=== PATIENT | male | born 1965 | race Caucasian/White ===

== ENCOUNTER → 2016-05-22 | Outpatient (CLI) | payer MEDICARE, OTHER | LOC: HEART 5 08:51 | DX: I50.22 Chronic systolic (congestive) heart failure (principal); I25.10 Atherosclerotic heart disease of native coronary artery without angina pectoris; I42.0 Dilated cardiomyopathy; I47.1 Supraventricular tachycardia; I47.2 Ventricular tachycardia | CPT/HCPCS: 93306 ==

== ENCOUNTER → 2016-05-22 | Outpatient (CLI) | payer MEDICARE ==
[2016-05-22 10:29] LABS: BUN/CREATININE RATIO 20 (0-10)
== END ==
PROVIDERS: Internal Medicine Cardiovascular Disease
DX: E78.4 Other hyperlipidemia (principal); I20.9 Angina pectoris, unspecified; I25.10 Atherosclerotic heart disease of native coronary artery without angina pectoris; I42.0 Dilated cardiomyopathy; I47.1 Supraventricular tachycardia; I47.2 Ventricular tachycardia; I50.22 Chronic systolic (congestive) heart failure; Z88.5 Allergy status to narcotic agent
CPT/HCPCS: 36415; 80048; 83880

== ENCOUNTER 2016-08-12 10:42 | Emergency (ER) | payer MEDICARE, OTHER ==
[2016-08-12 11:56] LABS: HEMOGLOBIN 13.1 gm/dl (14.0-17.5); RED BLOOD COUNT 4.43 M/UL (4.20-5.50); WHITE BLOOD COUNT 8.8 K/UL (4.5-11.0)
[2016-08-12 12:11] LABS: BUN/CREATININE RATIO 28 (0-10)
== END 2016-08-12 16:43 | disposition home or self-care (01) ==
LOC: ER1 10:42
PROVIDERS: Specialist/Technologist Athletic Trainer
DX: R07.89 Other chest pain (principal); I11.9 Hypertensive heart disease without heart failure; E78.5 Hyperlipidemia, unspecified; R79.89 Other specified abnormal findings of blood chemistry; Z79.899 Other long term (current) drug therapy; Z88.5 Allergy status to narcotic agent; Z95.810 Presence of automatic (implantable) cardiac defibrillator
CPT/HCPCS: 36415; 71020; 80053; 82550; 82553; 83874; 84484; 85025; 93005; 96374; 96375; 99285; J1885; J2270; J2405

== ENCOUNTER → 2020-04-02 | Outpatient (CLI) | payer MEDICARE, OTHER ==
[~2020-04-02] MED LIST: ACTIGALL300 MG PO; ALDACTONE50 MG PO; AMIODARONE HCL400 MG PO; BACTRIM DS TAB1 EACH PO; BENTYL 20MG TAB20 MG PO; BUMETANIDE1 MG PO; BUMEX 1MG TABLET1 MG PO; CALCIUM 500 +1 EAC1 PO; CELLCEPT500 MG PO; CERTAVITE-ANTI1 EACH PO; COREG 25MG TAB25 MG PO; ECOTRIN81 MG PO; ENTRESTO 24 MG1 EACH PO; ENTRESTO PO; FLOMAX0.4 MG PO; FOLIC ACID1 MG PO; HUMALOG100 UNIT/3 SQ; IMDUR ER TAB 3030 MG PO; KLOR-CON 1010 MEQ PO; LANTUS SOL100 UNIT/1 SQ; LASIX20 MG PO; LIPITOR10 MG PO; MAG6464 MG PO; NITROSTAT0.4 MG SL; NORCO 5-325 TA1 EACH PO; NORCO 7.5-3251 EACH PO; PHENERGAN 25 MG25 M1 PO; PRAVACHOL40 MG PO; PREDNISONE2.5 MG PO; PRINIVIL20 MG PO; PROGRAF1 MG PO; PROTONIX40 MG PO; REQUIP0.25 MG PO; SENOKOT8.6 MG PO; TESSALON PERLE100 MG PO; TOPROL XL 25 MG25 MG PO; VALGANCICLOVIR450 MG PO; VENTOLIN HFA 66.7 GM INH; VISTARIL25 MG PO; WARFARIN SODIU2.5 MG PO; ZITHROMAX TRI-500 MG PO
[2020-04-02 12:59] LABS: HEMOGLOBIN 14.4 gm/dl (14.0-17.5); RED BLOOD COUNT 5.05 M/UL (4.20-5.50); WHITE BLOOD COUNT 5.6 K/UL (4.5-11.0)
[2020-04-02 13:34] LABS: BUN/CREATININE RATIO 28 (0-10)
== END ==
LOC: LAB 12:13
PROVIDERS: Internal Medicine
DX: Z48.21 Encounter for aftercare following heart transplant (principal); A49.02 Methicillin resistant Staphylococcus aureus infection, unspecified site; Z22.39 Carrier of other specified bacterial diseases
CPT/HCPCS: 36415; 80053; 85027

== ENCOUNTER 2020-05-06 03:47 | Emergency (ER) | payer MEDICARE, OTHER ==
[~2020-05-06] VITALS: Ht 167.6 cm; Wt 90.7 kg
[~2020-05-06 03:47] MED LIST changes: -BACTRIM DS TAB1 EACH PO; -BUMETANIDE1 MG PO; -CALCIUM 500 +1 EAC1 PO; -CELLCEPT500 MG PO; -CERTAVITE-ANTI1 EACH PO; -HUMALOG100 UNIT/3 SQ; -LANTUS SOL100 UNIT/1 SQ; -MAG6464 MG PO; -PRAVACHOL40 MG PO; -PREDNISONE2.5 MG PO; -PROGRAF1 MG PO; -REQUIP0.25 MG PO; -SENOKOT8.6 MG PO; -VALGANCICLOVIR450 MG PO
[2020-05-06 04:39] LABS: HEMOGLOBIN 12.5 gm/dl (14.0-17.5); RED BLOOD COUNT 4.34 M/UL (4.20-5.50); WHITE BLOOD COUNT 10.2 K/UL (4.5-11.0)
[2020-05-06 04:53] LABS: BUN/CREATININE RATIO 30 (0-10)
[2020-05-06] MEDS ORDERED: CELLCEPT500 MG PO (16:30)
[2020-05-06] MEDS ORDERED: PROGRAF1 MG PO (16:33)
[2020-05-06] MEDS ORDERED: CALCIUM 500 +1 EAC1 PO (16:34)
[2020-05-06] MEDS ORDERED: CERTAVITE-ANTI1 EACH PO (16:35)
[2020-05-06] MEDS ORDERED: VALGANCICLOVIR450 MG PO (16:37)
[2020-05-06] MEDS ORDERED: SENOKOT8.6 MG PO (16:38)
[2020-05-06] MEDS ORDERED: BACTRIM DS TAB1 EACH PO (16:40)
[2020-05-06] MEDS ORDERED: PROTONIX40 MG PO (16:43)
[2020-05-06] MEDS ORDERED: PRAVACHOL40 MG PO (16:43)
[2020-05-06] MEDS ORDERED: REQUIP0.25 MG PO (16:44)
[2020-05-06] MEDS ORDERED: BUMETANIDE1 MG PO (16:45)
[2020-05-06] MEDS ORDERED: PREDNISONE2.5 MG PO (16:45)
[2020-05-06] MEDS ORDERED: HUMALOG100 UNIT/3 SQ ×3 (16:47→16:48)
[2020-05-06] MEDS ORDERED: LANTUS SOL100 UNIT/1 SQ (16:53)
[2020-05-06] MEDS ORDERED: MAG6464 MG PO (16:54)
[2020-05-07 06:20] LABS: BUN/CREATININE RATIO 21 (0-10)
[2020-05-09 16:14] LABS: ORGANISM ID Not indicated. (.); SPECIMEN SOURCE Urine (.); STREPTOCOCCUS PNEUMONIAE AG Negative (Negative)
== END 2020-05-07 12:07 | disposition admitted as inpatient to this hospital (09) ==
LOC: ER1 03:47
PROVIDERS: Emergency Medicine
DX: J18.9 Pneumonia, unspecified organism (principal); E11.9 Type 2 diabetes mellitus without complications; I10 Essential (primary) hypertension; Z20.822 Contact with and (suspected) exposure to COVID-19; Z94.1 Heart transplant status; Z90.49 Acquired absence of other specified parts of digestive tract; Z93.3 Colostomy status
CPT/HCPCS: 71045; 80048; 80053; 81001; 82962; 83605; 83615; 83690; 84484; 85025; 85610; 85730; 87040; 87278; 87635; 87899; 93005; 96365; 96366; 96368; 96376; 99285; J2185; J2405; J3370; J7030; J7070; Q9967

== ENCOUNTER → 2020-05-13 | Outpatient (CLI) | payer MEDICARE, OTHER ==
[~2020-05-13] MED LIST changes: +BACTRIM DS TAB1 EACH PO; +BUMETANIDE1 MG PO; +CALCIUM 500 +1 EAC1 PO; +CELLCEPT500 MG PO; +CERTAVITE-ANTI1 EACH PO; +HUMALOG100 UNIT/3 SQ; +LANTUS SOL100 UNIT/1 SQ; +MAG6464 MG PO; +PRAVACHOL40 MG PO; +PREDNISONE2.5 MG PO; +PROGRAF1 MG PO; +REQUIP0.25 MG PO; +SENOKOT8.6 MG PO; +VALGANCICLOVIR450 MG PO
== END ==
LOC: LAB 11:46
DX: Z48.21 Encounter for aftercare following heart transplant (principal); I42.0 Dilated cardiomyopathy; Z16.12 Extended spectrum beta lactamase (ESBL) resistance; Z22.39 Carrier of other specified bacterial diseases; Z16.24 Resistance to multiple antibiotics
CPT/HCPCS: 36415

== ENCOUNTER → 2020-07-23 | Outpatient (CLI) | payer MEDICARE, OTHER ==
[2020-07-23 09:23] LABS: HEMOGLOBIN 12.7 gm/dl (14.0-17.5); RED BLOOD COUNT 4.57 M/UL (4.20-5.50); WHITE BLOOD COUNT 3.7 K/UL (4.5-11.0)
[2020-07-23 10:02] LABS: BUN/CREATININE RATIO 23 (0-10)
== END ==
LOC: LAB 08:47
PROVIDERS: Internal Medicine
DX: A49.02 Methicillin resistant Staphylococcus aureus infection, unspecified site (principal); Z22.39 Carrier of other specified bacterial diseases
CPT/HCPCS: 36415; 80053; 85027

== ENCOUNTER 2020-07-26 11:47 | Emergency (ER) | payer MEDICARE, OTHER ==
[2020-07-26 12:40] LABS: HEMOGLOBIN 12.2 gm/dl (14.0-17.5); RED BLOOD COUNT 4.35 M/UL (4.20-5.50); WHITE BLOOD COUNT 3.4 K/UL (4.5-11.0)
[2020-07-26 13:04] LABS: BUN/CREATININE RATIO 20 (0-10)
[2020-07-26 13:07] LABS: BORDETELLA PARAPERTUSSIS Not Detected (Not Detectd); BORDETELLA PERTUSSIS Not Detected (Not Detectd); CHLAMYDIA PNEUMONIAE Not Detected (Not Detectd); CORONAVIRUS HKU1 Not Detected (Not Detectd); CORONAVIRUS NL63 Not Detected (Not Detectd); CORONAVIRUS OC43 Not Detected (Not Detectd); CORONOAVIRUS 229E Not Detected (Not Detectd); HUMAN METAPNEUMOVIRUS Not Detected (Not Detectd); HUMAN RHINOVIRUS/ENTEROVIRUS Not Detected (Not Detectd); INFLUENZA A Not Detected (Not Detectd); INFLUENZA B Not Detected (Not Detectd); MYCOPLASMA PNEUMONIAE Not Detected (Not Detectd); PARAINFLUENZA VIRUS 1 Not Detected (Not Detectd); PARAINFLUENZA VIRUS 2 Not Detected (Not Detectd); PARAINFLUENZA VIRUS 3 Not Detected (Not Detectd); PARAINFLUENZA VIRUS 4 Not Detected (Not Detectd); RESPIRATORY SYNCYTIAL VIRUS Not Detected (Not Detectd)
[2020-07-26 14:18] LABS: SARS-CoV-2 NOT DETECTED (Not Detectd)
== END 2020-07-26 16:20 | disposition home or self-care (01) ==
LOC: ER1 11:47
PROVIDERS: Emergency Medicine
DX: R50.9 Fever, unspecified (principal); Z94.1 Heart transplant status
CPT/HCPCS: 71045; 80053; 81001; 83605; 83735; 83880; 84100; 84484; 85025; 87040; 87086; 87633; 93005; 99283; J7030

== ENCOUNTER → 2020-09-11 | Outpatient (CLI) | payer MEDICARE, OTHER ==
[2020-09-11 12:24] LABS: RED BLOOD COUNT 4.26 M/UL (4.20-5.50); WHITE BLOOD COUNT 6.6 K/UL (4.5-11.0)
[2020-09-11 12:54] LABS: BUN/CREATININE RATIO 28 (0-10)
[2020-09-12 14:14] LABS: TACROLIMUS BY IMMUNOASSAY 7.6 ng/mL (2.0-20.0)
[2020-09-13 22:08] LABS: CMV QUANT DNA PCR (PLASMA) Positive < 200 IU/mL (Negative)
== END ==
LOC: LAB 10:13
PROVIDERS: Internal Medicine
DX: Z48.21 Encounter for aftercare following heart transplant (principal); B25.9 Cytomegaloviral disease, unspecified; Z79.899 Other long term (current) drug therapy
CPT/HCPCS: 36415; 80053; 80195; 80197; 85025; 87497

== ENCOUNTER → 2020-09-25 | Outpatient (CLI) | payer MEDICARE, OTHER ==
[~2020-09-25] MED LIST changes: +DIOVAN160 MG PO; +FLONASE ALLER15.8 ML; +KENALOG CREAM 080 GM TOP; -PRINIVIL20 MG PO; +RAPAMUNE2 MG PO; +TRULICITY0.75 MG/0. SQ; +VITAMIN C 500500 MG PO; +VITAMIN E400 UNI1 PO; +ZYRTEC10 MG PO
[2020-09-25 12:56] LABS: HEMOGLOBIN 12.7 gm/dl (14.0-17.5); RED BLOOD COUNT 4.45 M/UL (4.20-5.50); WHITE BLOOD COUNT 7.6 K/UL (4.5-11.0)
[2020-09-25 13:21] LABS: BUN/CREATININE RATIO 23 (0-10)
[2020-09-27 21:07] LABS: CMV QUANT DNA PCR (PLASMA) Negative (Negative)
== END ==
LOC: LAB 12:07
PROVIDERS: Internal Medicine
DX: Z48.812 Encounter for surgical aftercare following surgery on the circulatory system (principal); Z94.1 Heart transplant status; Z79.899 Other long term (current) drug therapy
CPT/HCPCS: 36415; 80053; 80195; 80197; 85025; 87497

== ENCOUNTER 2020-10-24 12:08 | Inpatient (IN) | payer MEDICARE, OTHER ==
[~2020-10-24] VITALS: Ht 170.2 cm; Wt 88.5 kg
[~2020-10-24 12:08] MED LIST changes: -BUMETANIDE1 MG PO; -DIOVAN160 MG PO; -FLONASE ALLER15.8 ML; -HUMALOG100 UNIT/3 SQ; -KENALOG CREAM 080 GM TOP; -LANTUS SOL100 UNIT/1 SQ; -PROGRAF1 MG PO; -RAPAMUNE2 MG PO; -REQUIP0.25 MG PO; -TRULICITY0.75 MG/0. SQ; -VITAMIN C 500500 MG PO; -VITAMIN E400 UNI1 PO; -ZYRTEC10 MG PO
[2020-10-24 13:00] LABS: HEMOGLOBIN 14.4 gm/dl (14.0-17.5); RED BLOOD COUNT 5.09 M/UL (4.20-5.50); WHITE BLOOD COUNT 7.3 K/UL (4.5-11.0)
[2020-10-24 13:24] LABS: BUN/CREATININE RATIO 25 (0-10)
[2020-10-24] MEDS ORDERED: RAPAMUNE2 MG PO (14:34)
[2020-10-24] MEDS ORDERED: ZYRTEC10 MG PO (14:34)
[2020-10-24] MEDS ORDERED: VITAMIN E400 UNI1 PO (14:35)
[2020-10-24] MEDS ORDERED: TRULICITY0.75 MG/0. SQ (14:35)
[2020-10-24] MEDS ORDERED: FLONASE ALLER15.8 ML (14:36)
[2020-10-24] MEDS ORDERED: VITAMIN C 500500 MG PO (14:37)
[2020-10-24] MEDS ORDERED: KENALOG CREAM 080 GM TOP (14:38)
[2020-10-24] MEDS ORDERED: PROGRAF1 MG PO (16:33)
[2020-10-24] MEDS ORDERED: REQUIP0.25 MG PO (16:44)
[2020-10-24] MEDS ORDERED: BUMETANIDE1 MG PO (16:45)
[2020-10-24] MEDS ORDERED: HUMALOG100 UNIT/3 SQ ×3 (16:47→16:48)
[2020-10-24] MEDS ORDERED: LANTUS SOL100 UNIT/1 SQ (16:53)
[2020-10-24] MEDS ORDERED: DIOVAN160 MG PO (20:09)
[2020-10-25 05:25] LABS: HEMOGLOBIN 12.3 gm/dl (14.0-17.5); RED BLOOD COUNT 4.44 M/UL (4.20-5.50); WHITE BLOOD COUNT 4.1 K/UL (4.5-11.0)
[2020-10-25 05:40] LABS: BUN/CREATININE RATIO 23 (0-10)
[2020-10-26 04:40] LABS: HEMOGLOBIN 12.2 gm/dl (14.0-17.5); RED BLOOD COUNT 4.6 M/UL (4.20-5.50)
[2020-10-26 04:44] LABS: WHITE BLOOD COUNT 6.2 K/UL (4.5-11.0)
[2020-10-26 05:02] LABS: BUN/CREATININE RATIO 25 (0-10)
[2020-10-26 19:09] LABS: CMV QUANT DNA PCR (PLASMA) Negative (Negative)
== END 2020-10-27 01:15 | disposition short-term general hospital (02) | DRG 177 ==
LOC: ER1 12:08 → CDU 13:57 → PROG CARE 10-25 17:02
PROVIDERS: Physician Assistant; Physician Assistant Medical; ADMIT Internal Medicine
PROC: XW033E5 Introduction of Remdesivir Anti-infective into Peripheral Vein, Percutaneous Approach, New Technology Group 5 (ICD-10-PCS; 2020-10-24)
PROC: 3E0333Z Introduction of Anti-inflammatory into Peripheral Vein, Percutaneous Approach (ICD-10-PCS; 2020-10-24)
PROC: 8E0ZXY6 Isolation (ICD-10-PCS; principal; 2020-10-25)
DX: U07.1 COVID-19 (principal); J96.21 Acute and chronic respiratory failure with hypoxia; J12.82 Pneumonia due to coronavirus disease 2019; D84.89 Other immunodeficiencies; J98.11 Atelectasis; E87.1 Hypo-osmolality and hyponatremia; T86.298 Other complications of heart transplant; Z95.811 Presence of heart assist device; E86.1 Hypovolemia; R00.0 Tachycardia, unspecified; E11.649 Type 2 diabetes mellitus with hypoglycemia without coma; N40.0 Benign prostatic hyperplasia without lower urinary tract symptoms; I11.0 Hypertensive heart disease with heart failure; I50.9 Heart failure, unspecified; Z95.0 Presence of cardiac pacemaker; Z93.3 Colostomy status; Z79.4 Long term (current) use of insulin; Z88.6 Allergy status to analgesic agent; Z88.8 Allergy status to other drugs, medicaments and biological substances; Z79.52 Long term (current) use of systemic steroids; Z79.82 Long term (current) use of aspirin; Z88.5 Allergy status to narcotic agent
CPT/HCPCS: 36415; 36600; 71045; 71275; 80053; 80197; 80202; 82550; 82553; 82803; 82962; 83605; 83735; 83874; 84484; 85025; 85027; 85379; 87040; 87497; 93005; 94760; 96374; 99285; J0692; J1100; J1650; J2185; J2405; J3370; J7030; J7050; J7070; Q9967; U0002

== ENCOUNTER → 2020-11-28 | Outpatient (CLI) | payer MEDICARE, OTHER ==
[~2020-11-28] MED LIST changes: +BUMETANIDE1 MG PO; +DIOVAN160 MG PO; +FLONASE ALLER15.8 ML; +HUMALOG100 UNIT/3 SQ; +KENALOG CREAM 080 GM TOP; +LANTUS SOL100 UNIT/1 SQ; +PROGRAF1 MG PO; +RAPAMUNE2 MG PO; +REQUIP0.25 MG PO; +TRULICITY0.75 MG/0. SQ; +VITAMIN C 500500 MG PO; +VITAMIN E400 UNI1 PO; +ZYRTEC10 MG PO
[2020-11-28 10:22] LABS: HEMOGLOBIN 11.3 gm/dl (14.0-17.5); RED BLOOD COUNT 4.42 M/UL (4.20-5.50); WHITE BLOOD COUNT 10.2 K/UL (4.5-11.0)
[2020-11-28 10:55] LABS: BUN/CREATININE RATIO 25 (0-10)
[2020-11-29 17:09] LABS: TACROLIMUS BY IMMUNOASSAY 3.7 ng/mL (2.0-20.0)
[2020-12-02 20:10] LABS: CMV QUANT DNA PCR (PLASMA) Negative (Negative)
== END ==
LOC: LAB 09:27
PROVIDERS: Internal Medicine
DX: Z48.21 Encounter for aftercare following heart transplant (principal); Z79.899 Other long term (current) drug therapy
CPT/HCPCS: 36415; 80053; 80195; 80197; 85025; 87497

== ENCOUNTER → 2020-12-12 | Outpatient (CLI) | payer MEDICARE, OTHER | LOC: RAD 10:33 | DX: M25.512 Pain in left shoulder (principal) | CPT/HCPCS: 73030 ==

== ENCOUNTER → 2020-12-23 | Outpatient (CLI) | payer MEDICARE, OTHER ==
[2020-12-23 12:13] LABS: RED BLOOD COUNT 4.42 M/UL (4.20-5.50); WHITE BLOOD COUNT 8.7 K/UL (4.5-11.0)
[2020-12-23 12:33] LABS: BUN/CREATININE RATIO 26 (0-10)
[2020-12-24 12:14] LABS: TACROLIMUS BY IMMUNOASSAY 4.7 ng/mL (2.0-20.0)
== END ==
LOC: LAB 11:23
PROVIDERS: Internal Medicine
DX: Z48.21 Encounter for aftercare following heart transplant (principal); Z79.899 Other long term (current) drug therapy
CPT/HCPCS: 36415; 80053; 80195; 80197; 85025; 87497

== ENCOUNTER 2021-02-26 14:50 | Emergency (ER) | payer MEDICARE, OTHER ==
[2021-02-26 16:41] LABS: HEMOGLOBIN 13.4 gm/dl (14.0-17.5); RED BLOOD COUNT 4.68 M/UL (4.20-5.50); WHITE BLOOD COUNT 10.6 K/UL (4.5-11.0)
[2021-02-26 17:08] LABS: BUN/CREATININE RATIO 20 (0-10)
== END 2021-02-26 20:40 | disposition home or self-care (01) ==
LOC: ER1 14:50
PROVIDERS: Physician Assistant
DX: R07.9 Chest pain, unspecified (principal); I11.9 Hypertensive heart disease without heart failure; E78.5 Hyperlipidemia, unspecified; Z20.822 Contact with and (suspected) exposure to COVID-19
CPT/HCPCS: 71045; 80053; 82550; 82553; 83605; 83735; 83874; 84484; 85025; 87040; 93005; 99285; Q9967; U0002

== ENCOUNTER → 2021-04-05 | Outpatient (CLI) | payer MEDICARE, OTHER ==
[2021-04-05 12:34] LABS: HEMOGLOBIN 13.8 gm/dl (14.0-17.5); RED BLOOD COUNT 5.21 M/UL (4.20-5.50); WHITE BLOOD COUNT 8.9 K/UL (4.5-11.0)
[2021-04-05 12:58] LABS: BUN/CREATININE RATIO 24 (0-10)
== END ==
LOC: LAB 11:54
PROVIDERS: Internal Medicine
DX: Z94.1 Heart transplant status (principal); Z79.899 Other long term (current) drug therapy
CPT/HCPCS: 80053; 80195; 80197; 85025; 87497

== ENCOUNTER → 2021-08-13 | Outpatient (CLI) | payer MEDICARE, OTHER | LOC: LAB 11:08 | DX: Z20.822 Contact with and (suspected) exposure to COVID-19 (principal) | CPT/HCPCS: U0002 ==

== ENCOUNTER 2021-08-31 21:57 | Emergency (ER) | payer MEDICARE, OTHER ==
[2021-09-01] MEDS ORDERED: CEPHALEXIN500 M1 PO (01:24)
[2021-09-01] MEDS ORDERED: BACTRIM DS TAB1 EACH PO (01:24)
== END 2021-09-01 01:42 | disposition home or self-care (01) ==
LOC: ER1 21:57
DX: L03.211 Cellulitis of face (principal); R00.0 Tachycardia, unspecified; I11.9 Hypertensive heart disease without heart failure; E11.9 Type 2 diabetes mellitus without complications; Z94.1 Heart transplant status; Z88.5 Allergy status to narcotic agent
CPT/HCPCS: 99283